=== PATIENT | male | born 1980 | race Caucasian/White ===

== ENCOUNTER 2019-10-01 12:55 | Inpatient (IN) ==
[2019-10-01] MEDS ORDERED: ROCURONIUM BROMIDE 10 MG/ML 5 ML VIAL IV ONE ×2 (12:56→13:45)
[2019-10-01] MEDS ORDERED: ETOMIDATE 2 MG/ML 20 ML VIAL IV ONE (12:56)
[2019-10-01] MEDS ORDERED: RAPID SEQUENCE INDUCTION BAG ONE (12:59)
[2019-10-01] MEDS ORDERED: PROPOFOL IV EMULSION 10 MG/ML 100 ML VIAL IV ONE (13:11)
[2019-10-01] MEDS ORDERED: SODIUM CHLORIDE 0.9% 1000ML 1,000 ML IV SCH (13:15)
[2019-10-01] MEDS ORDERED: STAT IV Infusion **Titration per Protocol STA (13:18)
[2019-10-01] MEDS: propofoL 1,000 MG/100 ML VIAL IV SCH ×3 (13:21→21:40)
[2019-10-01 13:33] LABS: Basophils # (auto) 0.04 K/uL (0-0.2); Basophils % (auto) 0.7 %; Eosinophils # (auto) 0.32 K/uL (0-0.5); Eosinophils % (auto) 5.9 %; Hematocrit (blood only) 42.3 % (42-52); Hemoglobin 14.5 g/dL (14.0-18.0); Immature Granulocytes # (auto) 0.01 K/uL (0.00-0.02); Immature Granulocytes % (auto) 0.2 %; Lymphocytes # (auto) 2.38 K/uL (1.2-3.4); Lymphocytes % (auto) 43.7 %; Mean Corpuscular Hgb Conc 34.3 g/dL (32-36); Mean Corpuscular Volume 90.4 fL (80-100); Mean Platelet Volume 8.9 fL (7.4-10.4); Monocytes # (auto) 0.46 K/uL (0.11-0.59); Monocytes % (auto) 8.4 %; Neutrophils # (auto) 2.24 K/uL (1.4-6.5); Neutrophils % (auto) 41.1 %; Platelet Count 225 K/uL (130-400); RDW Coefficient of Variation 13.1 % (11.5-14.5); RDW Standard Deviation 42.4 fL (36.4-46.3); Red Blood Count 4.68 M/uL (4.7-6.1); White Blood Count 5.45 K/uL (4.8-10.8)
--- NOTE | 2019-10-01 13:42 | XRay Report ---
XR chest 1V portable CLINICAL HISTORY: od COMPARISON STUDY: No previous studies for comparison. FINDINGS: Tip of the endotracheal tube is 4.5 cm above the ravi. Hazy right lower lung opacity is n oted. There is no pneumothorax. There may be minimal left basilar opacity. There is no evidence for p ulmonary edema. Cardiac size is normal. A possible calcified density projects over the left supraclav icular region. IMPRESSION: 1. Satisfactory positioning of the endotracheal tube. 2. Bibasilar opacities, greater on the right. This may reflect atelectasis, infectious process or seq uela of aspiration. ACT 112: Negative or not required by law. Electronically signed by: Zane Ray M.D. 10/01/2019 1:40 PM
--- NOTE | 2019-10-01 13:43 | Emergency Department Note ---
Impression & Plan Drug overdose, Respiratory failure, Acute respiratory acidosis, Drug abuse ED Provider Note NAME: BROOKE SANTANA AGE: 38 SEX: M : 1980 ARRIVES VIA: Ambulance INFORMANT: Prehospital personnel ED PROVIDER(S): Michael Lin DO CHIEF COMPLAINT: Overdose HPI: The patient is a 38-year-old male who presented to the emergency department for an evaluation after a suspected overdose. The patient was [place] and was obtunded. He was not breathing and was felt to be suffering from an overdose. Some of the history was obtained from his significant other who is also at the court house but according to the drainage engineer the patient's significant other was intoxicated. The patient did receive 4 mg of Narcan. For a brief period he was lucid and denied taking any medications that were not prescribed to him but does take methadone. The patient became very combative and confused. I received a prehospital notification about this patient for medic command. The patient was given IM Versed followed by IM ketamine. The patient arrived at the emergency department with copious secretions. He had one episode of emesis prior to arrival. For this reason the decision was made upon arrival to manage the patient's airway aggressively. ROS: See above HPI for pertinent positives & negatives. HPI and ROS were obtained from the prehospital personnel. The patient was unable to participate in review of systems as he was obtunded at arrival in the emergency department. PAST MEDICAL HISTORY: See Below PAST SURGICAL HISTORY: See Below FAMILY HISTORY: See Below SOCIAL HISTORY: See Below HOME MEDICATIONS: See Below ALLERGIES: See Below VITALS: See Below PHYSICAL EXAMINATION: GENERAL: The patient was awake and very anxious appearing. He did not follow commands. He had very copious secretions noted and was making moaning noises. EYES: The conjunctivae are clear. The pupils are round and reactive. EARS, NOSE, MOUTH AND THROAT: The nose is without any evidence of any deformity. Mucous membranes are moist. NECK: The neck is nontender and supple. RESPIRATORY: Shallow respirations were noted. There were scattered rhonchi noted throughout. CARDIOVASCULAR: Tachycardic rate with regular rhythm was noted. There was no definite murmur. GASTROINTESTINAL: The abdomen is soft. Abdomen is nontender. MUSCULOSKELETAL/EXTREMITIES: There is no evidence of gross deformity full range of motion is noted in the hips and shoulders. SKIN: No pedal edema was noted. There were track olvera noted in the left AC as well as the left external jugular vein. NEUROLOGIC: Patient is awake but does not answer questions or follow commands. I am unable to assess orientation at this time. Patellar tendon reflexes were 2+ bilaterally. Patient was moving all extremities. MEDICAL DECISION MAKING: The patient is a 38-year-old male who presented to the emergency department after having a suspected drug overdose. The patient does have a history of methadone use but was found in a car unresponsive. He did receive Narcan but became very agitated. When the prehospital personnel arrived on scene he required benzodiazepines as well as IM ketamine in order to be formally evaluated. The patient had an episode of emesis prior to arrival. Because of the medications he received as well as the medications he took prior to the ove rdose the patient required airway protection. He was intubated in the usual fashion. He tolerated this quite well. The patient was placed on IV sedation while he was in the emergency department. He was reevaluated multiple times. I discussed the patient's condition with the on-call [facility] hospitalist group as well as the on-call multimedia authoring specialist group. They have agreed to evaluate the patient in the emergency department for further management and disposition. Triage Nursing notes reviewed. Prior medical records reviewed Vital Signs: reviewed and remarkable for hypertension. Differential diagnosis: Infection, hypoglycemia, electrolyte abnormalities, overdose, toxicologic, cardiac sources, intracerebral event, neurologic, trauma, as well as other pathologies. ER treatment provided: See below Diagnostics interpreted by me: ECG: EKG was obtained in the emergency department. My interpretation is sinus tachycardia at 101 bpm. There is no ectopy. There was no acute ST segment abnormalities noted. This was compared to a tracing from August 08, 2018. No significant changes were noted. Cardiac Monitoring: An order was placed for continuous cardiac monitoring. The monitor shows a rate of 96 with sinus rhythm. Laboratory studies: As stated above and show below. Imaging studies: See below Consultation(s): 1505: I discussed this case with Dr. Armendariz who is on-call for the [facility] hospitalist group. She is agreed to evaluate the patient in the emergency department for further management and disposition. 1510: I discussed this case with Dr. Nolen with the multimedia authoring specialist group. They have agreed to evaluate the patient in the emergency department for further management disposition. ED COURSE: Procedures: Endotracheal Intubation Indication airway protection after overdose and vomiting. The patient was on 100% oxygen via NRB prior to the procedure. Suction, airway equipment, RSI drugs, respiratory equipment, and appropriate personnel were prepared prior to the initiation of the procedure. A time out was taken. Induction was performed with etomidate and rocuronium. After observing the clinical benefit of the medications, the airway was easily visualized utilizing a glide scope. A 8.0 size ETT tube was placed atraumatically to 24 cm using standard technique. The cuff inflated without signs of malfunction. There were bilateral breath sounds, positive colormetric change, no gastric sounds, a good capnography waveform, and post procedure pulse oximetry was 99%. Post intubation sedation and paralysis was administered using propofol. There were no complications. PDMP:reviewed and no issues Critical Care: I have personally spent greater than 55 minutes of critical care time in the direct management of this patient. This includes bedside care, interpretation of diagnostic studies, and testing, discussion with consultants, patient, and family members, and other required patient management activities. This 55 minutes is in excess of all separately billable procedures. Past Med/Surg History Social History Smoking Status: Unknown if ever smoked Allergies Allergies Allergy/AdvReac Type Severity Reaction Status Date / Time Unable to Assess Allergy Unverified 10/01/19 13:04 Home Meds Home Medications Medication Instructions Recorded Confirmed Unobtainable 10/01/19 10/01/19 Results & Data (ED) Vital Signs Vital Signs - 24 hr 10/01/19 12:55 10/01/19 13:00 10/01/19 13:05 Temperature 36.8 C Temperature Source Oral Pulse Rate 108 H 105 H 111 H Pulse Rate from SpO2 Sensor 107 H 116 H Respiratory Rate 11 L Respiratory Effort / Characteristics Moaning Respiratory Pattern Irregular Blood Pressure 162/146 H 167/109 H Blood Pressure Mean 151 118 Blood Pressure Position Lying Pulse Oximetry 94 99 100 Oxygen Delivery Method Non-rebreather Oxygen Flow Rate 15 Fraction of Inspired Oxygen Sepsis Recent Fever Within 48 Hours No Sepsis Action Taken by Nursing No Action Required End-Tidal CO2 10/01/19 13:10 10/01/19 13:12 10/01/19 13:18 Temperature Temperature Source Pulse Rate 104 H 102 H 99 H Pulse Rate from SpO2 Sensor 106 H 102 H 100 H Respiratory Rate Respiratory Effort / Characteristics Respiratory Pattern Blood Pressure 157/109 H 141/96 H Blood Pressure Mean 117 113 Blood Pressure Position Pulse Oximetry 100 99 100 Oxygen Delivery Method Oxygen Flow Rate Fraction of Inspired Oxygen Sepsis Recent Fever Within 48 Hours Sepsis Action Taken by Nursing End-Tidal CO2 39 10/01/19 13:20 10/01/19 13:25 10/01/19 13:30 Temperature Temperature Source Pulse Rate 101 H 99 H 96 H Pulse Rate from SpO2 Sensor 101 H 99 H 97 H Respiratory Rate 18 Respiratory Effort / Characteristics Respiratory Pattern Blood Pressure 142/104 H 150/109 H 162/116 H Blood Pressure Mean 112 118 134 Blood Pressure Position Pulse Oximetry 100 100 100 Oxygen Delivery Method Oxygen Flow Rate Fraction of Inspired Oxygen 70 Sepsis Recent Fever Within 48 Hours Sepsis Action Taken by Nursing End-Tidal CO2 39 40 41 10/01/19 13:35 10/01/19 13:40 10/01/19 13:45 Temperature Temperature Source Pulse Rate 97 H 99 H 100 H Pulse Rate from SpO2 Sensor 97 H 99 H 100 H Respiratory Rate Respiratory Effort / Characteristics Respiratory Pattern Blood Pressure 159/115 H 165/124 H 168/115 H Blood Pressure Mean 126 131 129 Blood Pressure Position Pulse Oximetry 100 100 100 Oxygen Delivery Method Oxygen Flow Rate Fraction of Inspired Oxygen Sepsis Recent Fever Within 48 Hours Sepsis Action Taken by Nursing End-Tidal CO2 39 41 44 10/01/19 13:48 10/01/19 13:50 10/01/19 13:55 Temperature Temperature Source Pulse Rate 103 H 105 H Pulse Rate from SpO2 Sensor 104 H 104 H Respiratory Rate Respiratory Effort / Characteristics Respiratory Pattern Blood Pressure 167/119 H 173/119 H Blood Pressure Mean 127 135 Blood Pressure Position Pulse Oximetry 100 100 100 Oxygen Delivery Method Oxygen Flow Rate Fraction of Inspired Oxygen Sepsis Recent Fever Within 48 Hours Sepsis Action Taken by Nursing End-Tidal CO2 44 44 10/01/19 14:00 10/01/19 14:21 10/01/19 14:26 Temperature Temperature Source Pulse Rate 99 H 105 H Pulse Rate from SpO2 Sensor 91 H 97 H Respiratory Rate Respiratory Effort / Characteristics Respiratory Pattern Blood Pressure 177/131 H 177/118 H 246/227 H Blood Pressure Mean 148 134 239 Blood Pressure Position Pulse Oximetry 97 100 Oxygen Delivery Method Oxygen Flow Rate Fraction of Inspired Oxygen Sepsis Recent Fever Within 48 Hours Sepsis Action Taken by Nursing End-Tidal CO2 43 48 10/01/19 14:30 10/01/19 14:31 10/01/19 14:35 Temperature Temperature Source Pulse Rate 99 H 95 H 95 H Pulse Rate from SpO2 Sensor 100 H 95 H 96 H Respiratory Rate Respiratory Effort / Characteristics Respiratory Pattern Blood Pressure 175/127 H 157/115 H Blood Pressure Mean 132 122 Blood Pressure Position Pulse Oximetry 99 100 95 Oxygen Delivery Method Oxygen Flow Rate Fraction of Inspired Oxygen Sepsis Recent Fever Within 48 Hours Sepsis Action Taken by Nursing End-Tidal CO2 45 10/01/19 14:40 10/01/19 14:42 10/01/19 14:46 Temperature Temperature Source Pulse Rate 94 H 91 H 94 H Pulse Rate from SpO2 Sensor Respiratory Rate Respiratory Effort / Characteristics Respiratory Pattern Blood Pressure 155/118 H 154/120 H Blood Pressure Mean 135 132 Blood Pressure Position Pulse Oximetry Oxygen Delivery Method Oxygen Flow Rate Fraction of Inspired Oxygen Sepsis Recent Fever Within 48 Hours Sepsis Action Taken by Nursing End-Tidal CO2 48 31 10/01/19 14:50 10/01/19 14:51 10/01/19 14:56 Temperature Temperature Source Pulse Rate 95 H 94 H 94 H Pulse Rate from SpO2 Sensor Respiratory Rate Respiratory Effort / Characteristics Respiratory Pattern Blood Pressure 149/116 H 160/106 H Blood Pressure Mean 125 132 Blood Pressure Position Pulse Oximetry Oxygen Delivery Method Oxygen Flow Rate Fraction of Inspired Oxygen Sepsis Recent Fever Within 48 Hours Sepsis Action Taken by Nursing End-Tidal CO2 101 10/01/19 15:00 10/01/19 15:01 10/01/19 15:06 Temperature Temperature Source Pulse Rate 91 H 88 85 Pulse Rate from SpO2 Sensor 90 88 84 Respiratory Rate Respiratory Effort / Characteristics Respiratory Pattern Blood Pressure 143/107 H 145/94 H Blood Pressure Mean 121 98 Blood Pressure Position Pulse Oximetry 99 100 100 Oxygen Delivery Method Oxygen Flow Rate Fraction of Inspired Oxygen Sepsis Recent Fever Within 48 Hours Sepsis Action Taken by Nursing End-Tidal CO2 39 39 36 10/01/19 15:07 10/01/19 15:10 Temperature Temperature Source Pulse Rate 80 76 Pulse Rate from SpO2 Sensor 81 79 Respiratory Rate Respiratory Effort / Characteristics Respiratory Pattern Blood Pressure 134/85 Blood Pressure Mean 94 Blood Pressure Position Pulse Oximetry 100 99 Oxygen Delivery Method Oxygen Flow Rate Fraction of Inspired Oxygen Sepsis Recent Fever Within 48 Hours Sepsis Action Taken by Nursing End-Tidal CO2 38 38 Home Medications Current Medication List: was personally reviewed by in Laboratory Data Result diagrams: 10/01/19 13:12 10/01/19 13:12 Lab Results 10/01/19 10/01/19 10/01/19 Range/Units 13:12 13:12 13:12 WBC 5.45 (4.8-10.8) K/uL RBC 4.68 L (4.7-6.1) M/uL Hgb 14.5 (14.0-18.0) g/dL Hct 42.3 (42-52) % MCV 90.4 (80-100) fL MCH 31.0 (25-34) pg MCHC 34.3 (32-36) g/dL RDW Std Deviation 42.4 (36.4-46.3) fL RDW Coeff of Jose L 13.1 (11.5-14.5) % Plt Count 225 (130-400) K/uL MPV 8.9 (7.4-10.4) fL Immature Gran % (Auto) 0.2 % Neut % (Auto) 41.1 % Lymph % (Auto) 43.7 % [place] % (Auto) 8.4 % Eos % (Auto) 5.9 % Baso % (Auto) 0.7 % Immature Gran # (Auto) 0.01 (0.00-0.02) K/uL Neut # (Auto) 2.24 (1.4-6.5) K/uL Lymph # (Auto) 2.38 (1.2-3.4) K/uL [place] # (Auto) 0.46 (0.11-0.59) K/uL Eos # (Auto) 0.32 (0-0.5) K/uL Baso # (Auto) 0.04 (0-0.2) K/uL PT 10.5 (9.0-12.0) Seconds INR 1.0 (0.9-1.1) APTT 29.1 (21.0-31.0) Seconds PTT Ratio 1.0 Sodium 139 (136-145) mmol/L Potassium 3.9 (3.5-5.1) mmol/L Chloride 104 (98-107) mmol/L Carbon Dioxide 29 (21-32) mmol/L Anion Gap 6.0 (3-11) BUN 6 L (7-18) mg/dl Creatinine 0.75 (0.6-1.4) mg/dl Est Cr Clr Drug Dosing 158.0 ml/min Est GFR ( Amer) 133.9 Est GFR (Non-Af Amer) 115.6 BUN/Creatinine Ratio 7.9 L (10-20) Glucose 76 (70-99) mg/dl Lactate (0.4-2.0) mmol/L Calcium 8.9 (8.5-10.1) mg/dl Magnesium 2.1 (1.8-2.4) mg/dl Total Bilirubin 0.6 (0.2-1) mg/dl AST 33 (15-37) U/L ALT 44 (12-78) U/L Alkaline Phosphatase 117 (45-117) U/L Total Creatine Kinase 165 (39-308) U/L Troponin I < 0.015 (0-0.045) ng/ml Total Protein 7.7 (6.4-8.2) gm/dl Albumin 3.7 (3.4-5.0) gm/dl Globulin 4.0 (2.5-4.0) gm/dl Albumin/Globulin Ratio 0.9 (0.9-2) Lipase 141 (73-393) U/L Urine Color Urine Appearance (Clear) Urine pH (4.5-7.5) Ur Specific Wharton (1.000-1.030) Urine Protein (Negative) Urine Glucose (UA) (Negative) Urine Ketones (Negative) Urine Blood (Negative) Urine Nitrite (Negative) Urine Bilirubin (Negative) Urine Urobilinogen (Negative) Ur Leukocyte Esterase (Negative) Urine WBC (Auto) (0-5) /hpf Urine RBC (Auto) (0-4) /hpf U Hyaline Cast (Auto) (0-5) /lpf U Epithel Cells (Auto) (0-5) /lpf Urine Bacteria (Auto) (Negative) Salicylates (2.8-20) mg/dl Urine Opiates Screen (Neg) Ur Methadone, Qual (Neg) Acetaminophen (10-30) ug/ml Urine Barbiturates (Neg) Ur Phencyclidine (PCP) (Neg) U Amphetamin/Meth Scrn (Neg) MDMA (Ecstasy) Screen (Neg) U Benzodiazepines Scrn (Neg) Ur Cocaine Metabolite (Neg) U Marijuana (THC) Screen (Neg) Ethyl Alcohol mg/dL (0-3) mg/dl 10/01/19 10/01/19 10/01/19 Range/Units 13:12 13:12 13:25 WBC (4.8-10.8) K/uL RBC (4.7-6.1) M/uL Hgb (14.0-18.0) g/dL Hct (42-52) % MCV (80-100) fL MCH (25-34) pg MCHC (32-36) g/dL RDW Std Deviation (36.4-46.3) fL RDW Coeff of Jose L (11.5-14.5) % Plt Count (130-400) K/uL MPV (7.4-10.4) fL Immature Gran % (Auto) % Neut % (Auto) % Lymph % (Auto) % [place] % (Auto) % Eos % (Auto) % Baso % (Auto) % Immature Gran # (Auto) (0.00-0.02) K/uL Neut # (Auto) (1.4-6.5) K/uL Lymph # (Auto) (1.2-3.4) K/uL [place] # (Auto) (0.11-0.59) K/uL Eos # (Auto) (0-0.5) K/uL Baso # (Auto) (0-0.2) K/uL PT (9.0-12.0) Seconds INR (0.9-1.1) APTT (21.0-31.0) Seconds PTT Ratio Sodium (136-145) mmol/L Potassium (3.5-5.1) mmol/L Chloride (98-107) mmol/L Carbon Dioxide (21-32) mmol/L Anion Gap (3-11) BUN (7-18) mg/dl Creatinine (0.6-1.4) mg/dl Est Cr Clr Drug Dosing ml/min Est GFR ( Amer) Est GFR (Non-Af Amer) BUN/Creatinine Ratio (10-20) Glucose (70-99) mg/dl Lactate 0.8 (0.4-2.0) mmol/L Calcium (8.5-10.1) mg/dl Magnesium (1.8-2.4) mg/dl Total Bilirubin (0.2-1) mg/dl AST (15-37) U/L ALT (12-78) U/L Alkaline Phosphatase (45-117) U/L Total Creatine Kinase (39-308) U/L Troponin I (0-0.045) ng/ml Total Protein (6.4-8.2) gm/dl Albumin (3.4-5.0) gm/dl Globulin (2.5-4.0) gm/dl Albumin/Globulin Ratio (0.9-2) Lipase (73-393) U/L Urine Color Urine Appearance (Clear) Urine pH (4.5-7.5) Ur Specific Wharton (1.000-1.030) Urine Protein (Negative) Urine Glucose (UA) (Negative) Urine Ketones (Negative) Urine Blood (Negative) Urine Nitrite (Negative) Urine Bilirubin (Negative) Urine Urobilinogen (Negative) Ur Leukocyte Esterase (Negative) Urine WBC (Auto) (0-5) /hpf Urine RBC (Auto) (0-4) /hpf U Hyaline Cast (Auto) (0-5) /lpf U Epithel Cells (Auto) (0-5) /lpf Urine Bacteria (Auto) (Negative) Salicylates < 1.7 L (2.8-20) mg/dl Urine Opiates Screen Pos H (Neg) Ur Methadone, Qual Pos H (Neg) Acetaminophen < 2 L (10-30) ug/ml Urine Barbiturates Neg (Neg) Ur Phencyclidine (PCP) Neg (Neg) U Amphetamin/Meth Scrn Pos H (Neg) MDMA (Ecstasy) Screen Neg (Neg) U Benzodiazepines Scrn Pos H (Neg) Ur Cocaine Metabolite Neg (Neg) U Marijuana (THC) Screen Neg (Neg) Ethyl Alcohol mg/dL (0-3) mg/dl 10/01/19 10/01/19 Range/Units 13:25 13:42 WBC (4.8-10.8) K/uL RBC (4.7-6.1) M/uL Hgb (14.0-18.0) g/dL Hct (42-52) % MCV (80-100) fL MCH (25-34) pg MCHC (32-36) g/dL RDW Std Deviation (36.4-46.3) fL RDW Coeff of Jose L (11.5-14.5) % Plt Count (130-400) K/uL MPV (7.4-10.4) fL Immature Gran % (Auto) % Neut % (Auto) % Lymph % (Auto) % [place] % (Auto) % Eos % (Auto) % Baso % (Auto) % Immature Gran # (Auto) (0.00-0.02) K/uL Neut # (Auto) (1.4-6.5) K/uL Lymph # (Auto) (1.2-3.4) K/uL [place] # (Auto) (0.11-0.59) K/uL Eos # (Auto) (0-0.5) K/uL Baso # (Auto) (0-0.2) K/uL PT (9.0-12.0) Seconds INR (0.9-1.1) APTT (21.0-31.0) Seconds PTT Ratio Sodium (136-145) mmol/L Potassium (3.5-5.1) mmol/L Chloride (98-107) mmol/L Carbon Dioxide (21-32) mmol/L Anion Gap (3-11) BUN (7-18) mg/dl Creatinine (0.6-1.4) mg/dl Est Cr Clr Drug Dosing ml/min Est GFR ( Amer) Est GFR (Non-Af Amer) BUN/Creatinine Ratio (10-20) Glucose (70-99) mg/dl Lactate (0.4-2.0) mmol/L Calcium (8.5-10.1) mg/dl Magnesium (1.8-2.4) mg/dl Total Bilirubin (0.2-1) mg/dl AST (15-37) U/L ALT (12-78) U/L Alkaline Phosphatase (45-117) U/L Total Creatine Kinase (39-308) U/L Troponin I (0-0.045) ng/ml Total Protein (6.4-8.2) gm/dl Albumin (3.4-5.0) gm/dl Globulin (2.5-4.0) gm/dl Albumin/Globulin Ratio (0.9-2) Lipase (73-393) U/L Urine Color Yellow Urine Appearance Cloudy A (Clear) Urine pH 8.0 H (4.5-7.5) Ur Specific [place]arton 1.020 (1.000-1.030) Urine Protein Negative (Negative) Urine Glucose (UA) Negative (Negative) Urine Ketones Negative (Negative) Urine Blood Negative (Negative) Urine Nitrite Negative (Negative) Urine Bilirubin Negative (Negative) Urine Urobilinogen Negative (Negative) Ur Leukocyte Esterase Negative (Negative) Urine WBC (Auto) 0 (0-5) /hpf Urine RBC (Auto) 0-4 (0-4) /hpf U Hyaline Cast (Auto) 1-5 (0-5) /lpf U Epithel Cells (Auto) 10-20 H (0-5) /lpf Urine Bacteria (Auto) Negative (Negative) Salicylates (2.8-20) mg/dl Urine Opiates Screen (Neg) Ur Methadone, Qual (Neg) Acetaminophen (10-30) ug/ml Urine Barbiturates (Neg) Ur Phencyclidine (PCP) (Neg) U Amphetamin/Meth Scrn (Neg) MDMA (Ecstasy) Screen (Neg) U Benzodiazepines Scrn (Neg) Ur Cocaine Metabolite (Neg) U Marijuana (THC) Screen (Neg) Ethyl Alcohol mg/dL < 3.0 (0-3) mg/dl Administered Medications Propofol (Diprivan) 1,000 mg in 100 mls @ 14.085 mls/hr IV .Q7H6M [facility]; Protocol Stop: 10/04/19 13:29 Last Titration: 10/01/19 15:08 Dose: 35 mcg/kg/min, 19.7 mls/hr Documented by: [id number] Titration: 10/01/19 14:56 Dose: 30 mcg/kg/min, 16.9 mls/hr Documented by: [id number] Titration: 10/01/19 14:49 Dose: 25 mcg/kg/min, 14.1 mls/hr Documented by: [id number] Admin: 10/01/19 13:21 Dose: 20 mcg/kg/min, 11.3 mls/hr Documented by: [id number] Cosigned by: [id number] Propofol (Diprivan Bolus From Bag) 20 mg IV Q5M PRN PRN Reason: Sedation Stop: 10/04/19 13:17 Last Admin: 10/01/19 14:33 Dose: 20 mg Documented by: [id number] Cosigned by: [id number] Discontinued Medications Fentanyl Citrate (Fentanyl Citrate) 200 mcg IV NOW STA Stop: 10/01/19 14:42 Last Admin: 10/01/19 14:43 Dose: 200 mcg Documented by: [id number] Fentanyl Citrate (Fentanyl Citrate) Confirm Administered Dose 200 mcg .ROUTE .STK-MED ONE Stop: 10/01/19 14:42 Last Admin: 10/01/19 14:43 Dose: Not Given Documented by: [id number] Sodium Chloride (Nss 1000ml) 1,000 mls @ 999 mls/hr IV .Q1H1M NINI Stop: 10/01/19 14:15 Last Infusion: 10/01/19 14:43 Dose: 0 mls/hr Documented by: [id number] Admin: 10/01/19 13:18 Dose: 999 mls/hr Documented by: [id number] Midazolam HCl (Versed) 4 mg IV NOW STA Stop: 10/01/19 14:27 Last Admin: 10/01/19 14:31 Dose: 4 mg Documented by: [id number] Propofol (Diprivan) Confirm Administered Dose 1,000 mg IV .STK-MED ONE Stop: 10/01/19 13:12 Last Admin: 10/01/19 13:21 Dose: Not Given Documented by: [id number] Rocuronium [place] (Zemuron) 80 mg IV NOW ONE Stop: 10/01/19 13:46 Last Admin: 10/01/19 13:09 Dose: 80 mg Documented by: [id number] Cosigned by: [id number] Imaging Data Radiologist's Impression: XR chest 1V portable CLINICAL HISTORY: od COMPARISON STUDY: No previous studies for comparison. FINDINGS: Tip of the endotracheal tube is 4.5 cm above the ravi. Hazy right lower lung opacity is noted. There is no pneumothorax. There may be minimal left basilar opacity. There is no evidence for pulmonary edema. Cardiac size is normal. A possible calcified density projects over the left supraclavicular region. IMPRESSION: 1. Satisfactory positioning of the endotracheal tube. 2. Bibasilar opacities, greater on the right. This may reflect atelectasis, infectious process or sequela of aspiration. ACT 112: Negative or not required by law. Electronically signed by: Zane Ray M.D. 10/01/2019 1:40 PM Dictated: 10/01/191338 Transcribed: 10/01/191338 HEAD CT NONCONTRAST CT DOSE: 1842.80 mGy.cm HISTORY: Altered mental status. TECHNIQUE: Multiaxial CT images of the head were performed without the use of intravenous contrast. Automated exposure control was utilized for this study. A dose lowering technique was utilized adhering to the principles of ALARA. Comparison: None. Findings: Small retention cyst within the left maxillary sinus. The mastoid air cells are clear. Fluid in the posterior nasal cavity is likely due to the intubation. The calvarium and skull base are intact. The ventricles and sulci are within normal limits. There is no mass, hematoma, midline shift, or acute infarct. Impression: No acute intracranial abnormality. ACT 112: Negative or not required by law. Electronically signed by: Markel Obregon M.D. 10/01/2019 2:27 PM Dictated: 10/01/19 1419 Transcribed: 10/01/19 141 Blood Pressure Blood Pressure Findings: Elevated blood pressure Discharge Plan Visit Data Chief Complaint: Overdose (Accidental) Stated Complaint: drug over dose ED Provider: Michael Lin Discharge Problem: Drug overdose, Respiratory failure, Acute respiratory acidosis, Drug abuse Patient Disposition: Being Evaluated by Hospitalist Condition: Good Forms Stand Alone Forms: Preact Prescriptions Prescriptions: No Action Unobtainable RF: 0 Referrals Referrals: PCP,NO [Primary Care Provider] - Discharge Problem: Drug overdose Qualifiers: Encounter type: initial encounter Injury intent: undetermined intent Qualified Code(s): T50.904A - Poisoning by unspecified drugs, medicaments and biological substances, undetermined, initial encounter Respiratory failure Qualifiers: Chronicity: acute Respiratory failure complication: hypercapnia Qualified Code(s): J96.02 - Acute respiratory failure with hypercapnia
[2019-10-01 13:50] LABS: Alanine Aminotransferase 44 U/L (12-78); Albumin Level 3.7 gm/dl (3.4-5.0); BUN Creatinine Ratio 7.9 (10-20); Blood Urea Nitrogen 6 mg/dl (7-18); Calcium 8.9 mg/dl (8.5-10.1); Carbon Dioxide 29 mmol/L (21-32); Chloride 104 mmol/L (98-107); Est GFR (African American) 133.9; Est GFR (Non-African American) 115.6; Glucose 76 mg/dl (70-99); Lipase 141 U/L (73-393); Magnesium 2.1 mg/dl (1.8-2.4); Partial Thromboplastin Time 29.1 Seconds (21.0-31.0); Potassium 3.9 mmol/L (3.5-5.1); Prothrombin Time 10.5 Seconds (9.0-12.0); Sodium 139 mmol/L (136-145)
[2019-10-01 13:56] LABS: Albumin Globulin Ratio 0.9 (0.9-2); Alkaline Phosphatase 117 U/L (45-117); Aspartate Aminotransferase 33 U/L (15-37); Bilirubin,Total 0.6 mg/dl (0.2-1); Creatine Kinase 165 U/L (39-308); Total Protein 7.7 gm/dl (6.4-8.2); Troponin I < 0.015 ng/ml (0-0.045)
[2019-10-01 13:57] LABS: Acetaminophen < 2 ug/ml (10-30); Salicylate < 1.7 mg/dl (2.8-20)
[2019-10-01 14:12] LABS: Amphetamines+Metham, Urine Pos (Neg); Barbiturates, Urine Neg (Neg); Benzodiazepine, Urine Pos (Neg); Cocaine, Urine Neg (Neg); MDMA (Ecstacy), Urine Neg (Neg); Methadone, Urine Pos (Neg); Opiate, Urine Pos (Neg); Phencyclidine, Urine Neg (Neg)
[2019-10-01] MEDS ORDERED: MIDAZOLAM HCL 5 MG/ML 1 ML VIAL IV STA (14:26)
--- NOTE | 2019-10-01 14:28 | CT Scan Report ---
HEAD CT NONCONTRAST CT DOSE: 1842.80 mGy.cm HISTORY: Altered mental status. TECHNIQUE: Multiaxial CT images of the head were performed without the use of intravenous contrast. A utomated exposure control was utilized for this study. A dose lowering technique was utilized adheri ng to the principles of ALARA. Comparison: None. Findings: Small retention cyst within the left maxillary sinus. The mastoid air cells are clear. Flui d in the posterior nasal cavity is likely due to the intubation. The calvarium and skull base are int act. The ventricles and sulci are within normal limits. There is no mass, hematoma, midline shift, or acute infarct. Impression: No acute intracranial abnormality. ACT 112: Negative or not required by law. Electronically signed by: Markel Obregon M.D. 10/01/2019 2:27 PM
[2019-10-01 14:30] LABS: Appearance Urine Cloudy (Clear); Bacteria Urine Automated Negative (Negative); Bilirubin Urine Negative (Negative); Blood Urine Negative (Negative); Color Urine Yellow; Glucose Urine UA Negative (Negative); Ketones Urine Negative (Negative); Leukocyte Esterase Urine Negative (Negative); Nitrite Urine Negative (Negative); Protein Urine Negative (Negative); RBC Urine Automated 0-4 /hpf (0-4); Urobilinogen Urine Negative (Negative); WBC Urine Automated 0 /hpf (0-5)
[2019-10-01] MEDS: PROPOFOL BOLUS FROM BAG IV PRN ×3 (14:33→19:27)
[2019-10-01] MEDS ORDERED: fentaNYL citrate 100 MCG/2 ML VIAL IV STA (14:41)
[2019-10-01] MEDS ORDERED: fentaNYL citrate 100 MCG/2 ML VIAL ONE (14:41)
--- NOTE | 2019-10-01 15:24 | History & Physical Report ---
Date of Service October 01, 2019 Assessment & Plan (1) Drug overdose: Pt found passed out in his car Given several medication by EMS: 4mg narcan, 4mg versed, ketamine Utox noted for opiates, methadone, methamphetamines, benzos Utox neg for acetaminophen and EtOH Pt stated rx use of methadone to EMS at one point CBC, PRP, trop, lactic acid, lipase WNL CT head: neg for acute UA neg Currently intubated and sedated for failure to protect airway (2) Respiratory failure: Presumed related to overdose (3) Acute respiratory acidosis: related to above (4) Abnormal chest x-ray: CXR s/p intubation with possible atelectasis vs aspiration Start on zosyn (5) DVT prophylaxis: Heparin for DVT proph History of Present Illness Primary Care Provider: RANJANA PCP 38 y/o M who was brought to the ED after being found passed out in his car. Pt is intubated and sedated at this time. Unable to provide any hx. All hx comes from ED physician. Pt was found passed out in his car. EMS was called. They gave pt 4mg Narcan and he appeared to wake up, however was confused and combative. Pt was then given 4mg Versed, but aggressiveness continued. He was then given ketamine. At this point, pt started with n/v and frothing at the mouth. He was brought to the ED and there was concern that he was not protecting his airway. He was intubated in the ED. He has been sedated on propofol since that time. At some point while pt was confused and combative, he did admit to being prescribed methadone. Per ED physician, pt's was on the scene when EMT arrived, however she appeared to be intoxicated as well. Allergies Allergy/AdvReac Type Severity Reaction Status Date / Time Unable to Assess Allergy Unverified 10/01/19 13:04 Home Medications Home Medications Medication Instructions Recorded Confirmed Type Unobtainable 10/01/19 10/01/19 History Past Med/Surg History Social History Smoking Status: Unknown if ever smoked Review of Systems Review of Systems: Unable to obtain due to pt intubated and sedated Physical Exam Constitutional: WD/WN, vitals as above Eyes: normal visual [place]eg[place] by confrontation and + anicteric sclerae Neck: normal visual inspection and trachea midline Respiratory: normal respiratory effort, lungs clear to auscultation Cardiovascular: Rate/Rhythm: regular rate and regular rhythm Gastrointestinal (Abdomen): Inspection/Auscultation: abdomen not distended Percussion/Palpation: abdomen soft; abdomen nontender Musculoskeletal: Head/Neck/Chest: normocephalic and head atraumatic negative for edema, peripheral pulses intact Skin: no rashes, warm and dry Neurologic: + obtunded; + not awake Psychiatric: Intubated and sedated Results & Data Results & Data ([facility]) Vital Signs (Past 12 Hours) Vital Signs Temp Pulse Resp BP Pulse Ox 10/01/19 15:10 76 134/85 99 10/01/19 15:07 80 100 10/01/19 15:06 85 145/94 H 100 10/01/19 15:01 88 143/107 H 100 10/01/19 15:00 91 H 99 10/01/19 14:56 94 H 160/106 H 10/01/19 14:51 94 H 149/116 H 10/01/19 14:50 95 H 20 14:46 94 H 154/120 H 0520 14:42 91 H 155/118 H 20 14:40 94 H 20 14:35 95 H 157/115 H 95 20 14:31 95 H 175/127 H 100 05/20 14:30 99 H 99 05//20 14:26 105 H 246/227 H 100 05/20/20 14:21 99 H 177/118 H 97 20 14:00 177/131 H 052020 13:55 105 H 173/119 H 100 05/20/20 13:50 103 H 167/119 H 100 05/20/20 13:48 100 05/20/20 13:45 100 H 168/115 H 100 05/20/20 13:40 99 H 165/124 H 100 05/20/20 13:35 97 H 159/115 H 100 05/20/20 13:30 96 H 162/116 H 100 05/20/20 13:25 99 H 150/109 H 100 05/20/20 13:20 101 H 18 142/104 H 100 05/20/20 13:18 99 H 141/96 H 100 05/20/20 13:12 102 H 157/109 H 99 10/01/19 13:10 104 H 100 10/01/19 13:05 111 H 100 10/01/19 13:00 105 H 167/109 H 99 10/01/19 12:55 36.8 C 108 H 11 L 162/146 H 94 Diagnostic Findings CXR s/p intubation with possible atelectasis vs aspiration CT head: neg for acute ECG Indication: tachycardia Code Status & VTE Plan Code Status Entered as full code for now given pt unable to answer VTE Prophylaxis Plan VTE Prophylaxis will be ordered: Yes PG Care Time/CCT Total # of Minutes Spent Total Time Spent with Patient: Total time spent is greater than 50% in coordination of care (as documented) at patient's floor/unit and/or counseling patient: Coding Level of Care Code 90288 Initial Inpt Care Lvl 3 Diagnoses Drug overdose T50.904A Encounter type: initial encounter Injury intent: undetermined intent Respiratory failure J96.02 Chronicity: acute Respiratory failure complication: hypercapnia Acute respiratory acidosis E87.2 Abnormal chest x-ray R93.89 DVT prophylaxis Z29.9 (1) Drug overdose Encounter type: initial encounter Injury intent: undetermined intent Qualified Code(s): T50.904A - Poisoning by unspecified drugs, medicaments and biological substances, undetermined, initial encounter (2) Respiratory failure Chronicity: acute Respiratory failure complication: hypercapnia Qualified Code(s): J96.02 - Acute respiratory failure with hypercapnia
--- NOTE | 2019-10-01 15:58 | Critical Care Consultation ---
Date of Consultation October 01, 2019 Assessment & Plan (1) Respiratory failure: Reason Critically Ill: 38-year-old male with probable opiate substance abuse leading to acute respiratory failure and acute encephalopathy requiring intubation mechanical ventilation PLAN: Neuro: Acute encephalopathy -Likely toxic, continue sedation and allow patient to clear offending medications -Urine drug screen positive for opiates: Methadone, amphetamines, benzodiazepines Resp: Respiratory failure -Possible aspiration -Minimal vent settings currently wean and extubate early -Discontinue Zosyn as there is no evidence of aspiration pneumonitis at this time CV: Telemetry for cardiac monitoring Prolonged QT -Suspect secondary to methadone Fluids/Renal: Maintenance fluids -Currently D5 NS with 20 M EQ's KCl decreased rate to 75 ID: Possible aspiration -Discontinued Zosyn secondary to normal oxygen requirement will closely monitor GI/Nutrition: Hepatitis C antibody preliminary positive -Will obtain additional information when patient is arousable possible gastroenterology referral -Hepatitis C RNA is negative at this time Heme: DVT prophylaxis: Heparin for DVT prophylaxis Endocrine: ICU hyperglycemia protocol Vascular access: Peripheral IVs Code Status: Full Disposition: ICU monitoring Present on Admission?: Yes (2) Acute encephalopathy: (3) DVT prophylaxis: (4) Drug abuse: (5) Acute respiratory acidosis: (6) Drug overdose: (7) Admitted to intensive care unit: (8) Substance abuse: (9) Prolonged Q-T interval on ECG: History of Present Illness Reason for Consultation: Acute encephalopathy, hypoxic respiratory failure Requesting Physician: Riley Attending Physician: Sharon ROWLEY History of Present Illness History is obtained from prior records as patient is intubated and sedated. This is a 38-year-old male history is largely from EMS. It was reported the patient was found in his automobile outside the [facility] while his partner was inside being arraigned. It was reported that his partner was intoxicated and when authorities found the patient in his vehicle he was unresponsive. EMS was contacted and he was administered for 2 mg of Narcan and had an appropriate response, the patient admitted to methadone use however he became obtunded again he was combative in the emergency department possibly aspirated and was subsequently intubated in the emergency department. I have been consulted for evaluation and further management. Allergies Allergy/AdvReac Type Severity Reaction Status Date / Time Unable to Assess Allergy Unverified 10/01/19 13:04 Home Medications Home Medications Medication Instructions Recorded Confirmed Type Unobtainable 10/01/19 10/01/19 History Patient History Social History Communication Ability: Unable Beliefs That Will Affect Care: None Smoking Status: Unknown if ever smoked Hx Substance Use: Yes substance use type: methamphetamine Substance Use Type Other:: test pending Review of Systems Review of Systems: Unobtainable due to endotracheal tube and Unobtainable due to reduced consciousness Physical Exam Physical Exam: General: Well-nourished middle-aged male with multiple tattoos covering his bilateral upper extremities and lower extremities I have reviewed the recorded vital signs Neurological: RASS score: -2, Moves all 4 extremities to painful stimuli Psychological: Glascow Coma Scale: Eyes: 2, Verbal 1T, Motor 5, Total 8T Eyes: Pupils are equal, round and reactive to light, anicteric sclera. Symmetrical lids. HENT: Obscured by endotracheal tube, moist Mucous Membranes. Neck: Supple. Symmetric. trachea midline. No thyromegaly. Cardiovascular: Normal peripheral perfusion. Distal pulses and capillary refill intact. No JVD. Respiratory: Respirations are non-labored, no accessory muscle use. Breath sounds are equal. Gastrointestinal: Soft. Non-distended. Lymphatic: No cervical lymphadenopathy. Musculoskeletal: No deformity. No clubbing nor cyanosis, multiple tattoos Results & Data Results & Data ([facility]) Vital Signs (Past 12 Hours) Vital Signs Temp Pulse Resp BP Pulse Ox 10/01/19 15:50 84 100 10/01/19 15:45 76 139/93 99 10/01/19 15:40 78 99 10/01/19 15:30 78 134/84 99 10/01/19 15:25 79 126/89 98 10/01/19 15:20 74 100 10/01/19 15:16 81 150/81 H 99 10/01/19 15:10 76 134/85 99 10/01/19 15:07 80 100 10/01/19 15:06 85 145/94 H 100 10/01/19 15:01 88 143/107 H 100 10/01/19 15:00 91 H 99 10/01/19 14:56 94 H 160/106 H 10/01/19 14:51 94 H 149/116 H 10/01/19 14:50 95 H 10/01/19 14:46 94 H 154/120 H 10/01/19 14:42 91 H 155/118 H 10/01/19 14:40 94 H 10/01/19 14:35 95 H 157/115 H 95 10/01/19 14:31 95 H 175/127 H 100 10/01/19 14:30 99 H 99 10/01/19 14:26 105 H 246/227 H 100 10/01/19 14:21 99 H 177/118 H 97 10/01/19 14:00 177/131 H 10/01/19 13:55 105 H 173/119 H 10/01/19 13:50 103 H 167/119 H 10/01/19 13:48 100 10/01/19 13:45 100 H 168/115 H 10/01/19 13:40 99 H 165/124 H 10/01/19 13:35 97 H 159/115 H 10/01/19 13:30 96 H 162/116 H 100 10/01/19 13:25 99 H 150/109 H 100 10/01/19 13:20 101 H 18 142/104 H 100 10/01/19 13:18 99 H 141/96 H 10/01/19 13:12 102 H 157/109 H 10/01/19 13:10 104 H 100 10/01/19 13:05 111 H 10/01/19 13:00 105 H 167/109 H 10/01/19 12:55 36.8 C 108 H 11 L 162/146 H 94 Laboratory Results 10/01/19 10/01/19 10/01/19 Range/Units 15:58 13:42 13:25 WBC (4.8-10.8) K/uL RBC (4.7-6.1) M/uL Hgb (14.0-18.0) g/dL Hct (42-52) % MCV (80-100) fL MCH (25-34) pg MCHC (32-36) g/dL RDW Std Deviation (36.4-46.3) fL RDW Coeff of Jose L (11.5-14.5) % Plt Count (130-400) K/uL MPV (7.4-10.4) fL Immature Gran % (Auto) % Neut % (Auto) % Lymph % (Auto) % Whitfield % (Auto) % Eos % (Auto) % Baso % (Auto) % Immature Gran # (Auto) (0.00-0.02) K/uL Neut # (Auto) (1.4-6.5) K/uL Lymph # (Auto) (1.2-3.4) K/uL Whitfield # (Auto) (0.11-0.59) K/uL Eos # (Auto) (0-0.5) K/uL Baso # (Auto) (0-0.2) K/uL PT (9.0-12.0) Seconds INR (0.9-1.1) APTT (21.0-31.0) Seconds PTT Ratio ABG pH Pending ABG pCO2 Pending ABG pO2 Pending ABG HCO3 Pending ABG O2 Saturation Pending ABG Base Excess Pending Bay Test Pending Oxygen Given Pending Sodium (136-145) mmol/L Potassium (3.5-5.1) mmol/L Chloride (98-107) mmol/L Carbon Dioxide (21-32) mmol/L Anion Gap (3-11) BUN (7-18) mg/dl Creatinine (0.6-1.4) mg/dl Est Cr Clr Drug Dosing ml/min Est GFR ( Amer) Est GFR (Non-Af Amer) BUN/Creatinine Ratio (10-20) Glucose (70-99) mg/dl Osmolality (280-300) mOsm/kg Lactate (0.4-2.0) mmol/L Calcium (8.5-10.1) mg/dl Magnesium (1.8-2.4) mg/dl Total Bilirubin (0.2-1) mg/dl AST (15-37) U/L ALT (12-78) U/L Alkaline Phosphatase (45-117) U/L Total Creatine Kinase (39-308) U/L Troponin I (0-0.045) ng/ml Total Protein (6.4-8.2) gm/dl Albumin (3.4-5.0) gm/dl Globulin (2.5-4.0) gm/dl Albumin/Globulin Ratio (0.9-2) Lipase (73-393) U/L Urine Color Urine Appearance (Clear) Urine pH (4.5-7.5) Ur Specific [place] (1.000-1.030) Urine Protein (Negative) Urine Glucose (UA) (Negative) Urine Ketones (Negative) Urine Blood (Negative) Urine Nitrite (Negative) Urine Bilirubin (Negative) Urine Urobilinogen (Negative) Ur Leukocyte Esterase (Negative) Urine WBC (Auto) (0-5) /hpf Urine RBC (Auto) (0-4) /hpf U Hyaline Cast (Auto) (0-5) /lpf U Epithel Cells (Auto) (0-5) /lpf Urine Bacteria (Auto) (Negative) Salicylates (2.8-20) mg/dl Urine Opiates Screen (Neg) U Codeine Confrm GC/MS Pending Ur Morphine (GC/MS) Pending Ur Hydrocodone (GC/MS) Pending Ur Norhydrocodone Pending Ur Noroxycodone Pending Urine Oxycodone (GC/MS) Pending U Oxymorphone GC/MS Pending Ur Methadone, Qual (Neg) U Methadone Metabolites Pending Ur Methadone Confirm Pending Ur Hydromorphone (GC/MS) Pending Acetaminophen (10-30) ug/ml Urine Barbiturates (Neg) Ur Phencyclidine (PCP) (Neg) U Amphetamines Confirm Pending U Amphetamin/Meth Scrn (Neg) U Methamphetamin Confrm Pending MDMA (Ecstasy) Screen (Neg) U OH-Alprazolam Confrm Pending U Benzodiazepines Scrn (Neg) 7-Amino Clonazepam Pending Ur Nordiazepam Confirm Pending U OH-ethylflurazepam Pending U Lorazepam Cnf GC/MS Pending U Oxazepam Confm GC/MS Pending Ur Temazepam Confirm Pending U OH-Triazolam Confirm Pending U OH-Midazolam Confirm Pending Ur Cocaine Metabolite (Neg) U Marijuana (THC) Screen (Neg) Drug Screen Comment Pending Ethyl Alcohol mg/dL < 3.0 (0-3) mg/dl 10/01/19 10/01/19 10/01/19 Range/Units 13:25 13:25 13:12 WBC (4.8-10.8) K/uL RBC (4.7-6.1) M/uL Hgb (14.0-18.0) g/dL Hct (42-52) % MCV (80-100) fL MCH (25-34) pg MCHC (32-36) g/dL RDW Std Deviation (36.4-46.3) fL RDW Coeff of Jose L (11.5-14.5) % Plt Count (130-400) K/uL MPV (7.4-10.4) fL Immature Gran % (Auto) % Neut % (Auto) % Lymph % (Auto) % Whitfield % (Auto) % Eos % (Auto) % Baso % (Auto) % Immature Gran # (Auto) (0.00-0.02) K/uL Neut # (Auto) (1.4-6.5) K/uL Lymph # (Auto) (1.2-3.4) K/uL Whitfield # (Auto) (0.11-0.59) K/uL Eos # (Auto) (0-0.5) K/uL Baso # (Auto) (0-0.2) K/uL PT (9.0-12.0) Seconds INR (0.9-1.1) APTT (21.0-31.0) Seconds PTT Ratio ABG pH ABG pCO2 ABG pO2 ABG HCO3 ABG O2 Saturation ABG Base Excess Bay Test Oxygen Given Sodium (136-145) mmol/L Potassium (3.5-5.1) mmol/L Chloride (98-107) mmol/L Carbon Dioxide (21-32) mmol/L Anion Gap (3-11) BUN (7-18) mg/dl Creatinine (0.6-1.4) mg/dl Est Cr Clr Drug Dosing ml/min Est GFR ( Amer) Est GFR (Non-Af Amer) BUN/Creatinine Ratio (10-20) Glucose (70-99) mg/dl Osmolality 287 (280-300) mOsm/kg Lactate (0.4-2.0) mmol/L Calcium (8.5-10.1) mg/dl Magnesium (1.8-2.4) mg/dl Total Bilirubin (0.2-1) mg/dl AST (15-37) U/L ALT (12-78) U/L Alkaline Phosphatase (45-117) U/L Total Creatine Kinase (39-308) U/L Troponin I (0-0.045) ng/ml Total Protein (6.4-8.2) gm/dl Albumin (3.4-5.0) gm/dl Globulin (2.5-4.0) gm/dl Albumin/Globulin Ratio (0.9-2) Lipase (73-393) U/L Urine Color Yellow Urine Appearance Cloudy A (Clear) Urine pH 8.0 H (4.5-7.5) Ur Specific Belding 1.020 (1.000-1.030) Urine Protein Negative (Negative) Urine Glucose (UA) Negative (Negative) Urine Ketones Negative (Negative) Urine Blood Negative (Negative) Urine Nitrite Negative (Negative) Urine Bilirubin Negative (Negative) Urine Urobilinogen Negative (Negative) Ur Leukocyte Esterase Negative (Negative) Urine WBC (Auto) 0 (0-5) /hpf Urine RBC (Auto) 0-4 (0-4) /hpf U Hyaline Cast (Auto) 1-5 (0-5) /lpf U Epithel Cells (Auto) 10-20 H (0-5) /lpf Urine Bacteria (Auto) Negative (Negative) Salicylates (2.8-20) mg/dl Urine Opiates Screen Pos H (Neg) U Codeine Confrm GC/MS Ur Morphine (GC/MS) Ur Hydrocodone (GC/MS) Ur Norhydrocodone Ur Noroxycodone Urine Oxycodone (GC/MS) U Oxymorphone GC/MS Ur Methadone, Qual Pos H (Neg) U Methadone Metabolites Ur Methadone Confirm Ur Hydromorphone (GC/MS) Acetaminophen (10-30) ug/ml Urine Barbiturates Neg (Neg) Ur Phencyclidine (PCP) Neg (Neg) U Amphetamines Confirm U Amphetamin/Meth Scrn Pos H (Neg) U Methamphetamin Confrm MDMA (Ecstasy) Screen Neg (Neg) U OH-Alprazolam Confrm U Benzodiazepines Scrn Pos H (Neg) 7-Amino Clonazepam Ur Nordiazepam Confirm U OH-ethylflurazepam U Lorazepam Cnf GC/MS U Oxazepam Confm GC/MS Ur Temazepam Confirm U OH-Triazolam Confirm U OH-Midazolam Confirm Ur Cocaine Metabolite Neg (Neg) U Marijuana (THC) Screen Neg (Neg) Drug Screen Comment Ethyl Alcohol mg/dL (0-3) mg/dl 0510/01/19 10/01/19 Range/Units 13:12 13:12 13:12 WBC (4.8-10.8) K/uL RBC (4.7-6.1) M/uL Hgb (14.0-18.0) g/dL Hct (42-52) % MCV (80-100) fL MCH (25-34) pg MCHC (32-36) g/dL RDW Std Deviation (36.4-46.3) fL RDW Coeff of Jose L (11.5-14.5) % Plt Count (130-400) K/uL MPV (7.4-10.4) fL Immature Gran % (Auto) % Neut % (Auto) % Lymph % (Auto) % Whitfield % (Auto) % Eos % (Auto) % Baso % (Auto) % Immature Gran # (Auto) (0.00-0.02) K/uL Neut # (Auto) (1.4-6.5) K/uL Lymph # (Auto) (1.2-3.4) K/uL Whitfield # (Auto) (0.11-0.59) K/uL Eos # (Auto) (0-0.5) K/uL Baso # (Auto) (0-0.2) K/uL PT (9.0-12.0) Seconds INR (0.9-1.1) APTT (21.0-31.0) Seconds PTT Ratio ABG pH ABG pCO2 ABG pO2 ABG HCO3 ABG O2 Saturation ABG Base Excess Bay Test Oxygen Given Sodium 139 (136-145) mmol/L Potassium 3.9 (3.5-5.1) mmol/L Chloride 104 (98-107) mmol/L Carbon Dioxide 29 (21-32) mmol/L Anion Gap 6.0 (3-11) BUN 6 L (7-18) mg/dl Creatinine 0.75 (0.6-1.4) mg/dl Est Cr Clr Drug Dosing 158.0 ml/min Est GFR ( Amer) 133.9 Est GFR (Non-Af Amer) 115.6 BUN/Creatinine Ratio 7.9 L (10-20) Glucose 76 (70-99) mg/dl Osmolality (280-300) mOsm/kg Lactate 0.8 (0.4-2.0) mmol/L Calcium 8.9 (8.5-10.1) mg/dl Magnesium 2.1 (1.8-2.4) mg/dl Total Bilirubin 0.6 (0.2-1) mg/dl AST 33 (15-37) U/L ALT 44 (12-78) U/L Alkaline Phosphatase 117 (45-117) U/L Total Creatine Kinase 165 (39-308) U/L Troponin I < 0.015 (0-0.045) ng/ml Total Protein 7.7 (6.4-8.2) gm/dl Albumin 3.7 (3.4-5.0) gm/dl Globulin 4.0 (2.5-4.0) gm/dl Albumin/Globulin Ratio 0.9 (0.9-2) Lipase 141 (73-393) U/L Urine Color Urine Appearance (Clear) Urine pH (4.5-7.5) Ur Specific Belding (1.000-1.030) Urine Protein (Negative) Urine Glucose (UA) (Negative) Urine Ketones (Negative) Urine Blood (Negative) Urine Nitrite (Negative) Urine Bilirubin (Negative) Urine Urobilinogen (Negative) Ur Leukocyte Esterase (Negative) Urine WBC (Auto) (0-5) /hpf Urine RBC (Auto) (0-4) /hpf U Hyaline Cast (Auto) (0-5) /lpf U Epithel Cells (Auto) (0-5) /lpf Urine Bacteria (Auto) (Negative) Salicylates < 1.7 L (2.8-20) mg/dl Urine Opiates Screen (Neg) U Codeine Confrm GC/MS Ur Morphine (GC/MS) Ur Hydrocodone (GC/MS) Ur Norhydrocodone Ur Noroxycodone Urine Oxycodone (GC/MS) U Oxymorphone GC/MS Ur Methadone, Qual (Neg) U Methadone Metabolites Ur Methadone Confirm Ur Hydromorphone (GC/MS) Acetaminophen < 2 L (10-30) ug/ml Urine Barbiturates (Neg) Ur Phencyclidine (PCP) (Neg) U Amphetamines Confirm U Amphetamin/Meth Scrn (Neg) U Methamphetamin Confrm MDMA (Ecstasy) Screen (Neg) U OH-Alprazolam Confrm U Benzodiazepines Scrn (Neg) 7-Amino Clonazepam Ur Nordiazepam Confirm U OH-ethylflurazepam U Lorazepam Cnf GC/MS U Oxazepam Confm GC/MS Ur Temazepam Confirm U OH-Triazolam Confirm U OH-Midazolam Confirm Ur Cocaine Metabolite (Neg) U Marijuana (THC) Screen (Neg) Drug Screen Comment Ethyl Alcohol mg/dL (0-3) mg/dl 10/01/19 10/01/19 Range/Units 13:12 13:12 WBC 5.45 (4.8-10.8) K/uL RBC 4.68 L (4.7-6.1) M/uL Hgb 14.5 (14.0-18.0) g/dL Hct 42.3 (42-52) % MCV 90.4 (80-100) fL MCH 31.0 (25-34) pg MCHC 34.3 (32-36) g/dL RDW Std Deviation 42.4 (36.4-46.3) fL RDW Coeff of Jose L 13.1 (11.5-14.5) % Plt Count 225 (130-400) K/uL MPV 8.9 (7.4-10.4) fL Immature Gran % (Auto) 0.2 % Neut % (Auto) 41.1 % Lymph % (Auto) 43.7 % Whitfield % (Auto) 8.4 % Eos % (Auto) 5.9 % Baso % (Auto) 0.7 % Immature Gran # (Auto) 0.01 (0.00-0.02) K/uL Neut # (Auto) 2.24 (1.4-6.5) K/uL Lymph # (Auto) 2.38 (1.2-3.4) K/uL Whitfield # (Auto) 0.46 (0.11-0.59) K/uL Eos # (Auto) 0.32 (0-0.5) K/uL Baso # (Auto) 0.04 (0-0.2) K/uL PT 10.5 (9.0-12.0) Seconds INR 1.0 (0.9-1.1) APTT 29.1 (21.0-31.0) Seconds PTT Ratio 1.0 ABG pH ABG pCO2 ABG pO2 ABG HCO3 ABG O2 Saturation ABG Base Excess Bay Test Oxygen Given Sodium (136-145) mmol/L Potassium (3.5-5.1) mmol/L Chloride (98-107) mmol/L Carbon Dioxide (21-32) mmol/L Anion Gap (3-11) BUN (7-18) mg/dl Creatinine (0.6-1.4) mg/dl Est Cr Clr Drug Dosing ml/min Est GFR ( Amer) Est GFR (Non-Af Amer) BUN/Creatinine Ratio (10-20) Glucose (70-99) mg/dl Osmolality (280-300) mOsm/kg Lactate (0.4-2.0) mmol/L Calcium (8.5-10.1) mg/dl Magnesium (1.8-2.4) mg/dl Total Bilirubin (0.2-1) mg/dl AST (15-37) U/L ALT (12-78) U/L Alkaline Phosphatase (45-117) U/L Total Creatine Kinase (39-308) U/L Troponin I (0-0.045) ng/ml Total Protein (6.4-8.2) gm/dl Albumin (3.4-5.0) gm/dl Globulin (2.5-4.0) gm/dl Albumin/Globulin Ratio (0.9-2) Lipase (73-393) U/L Urine Color Urine Appearance (Clear) Urine pH (4.5-7.5) Ur Specific Bel[place] (1.000-1.030) Urine Protein (Negative) Urine Glucose (UA) (Negative) Urine Ketones (Negative) Urine Blood (Negative) Urine Nitrite (Negative) Urine Bilirubin (Negative) Urine Urobilinogen (Negative) Ur Leukocyte Esterase (Negative) Urine WBC (Auto) (0-5) /hpf Urine RBC (Auto) (0-4) /hpf U Hyaline Cast (Auto) (0-5) /lpf U Epithel Cells (Auto) (0-5) /lpf Urine Bacteria (Auto) (Negative) Salicylates (2.8-20) mg/dl Urine Opiates Screen (Neg) U Codeine Confrm GC/MS Ur Morphine (GC/MS) Ur Hydrocodone (GC/MS) Ur Norhydrocodone Ur Noroxycodone Urine Oxycodone (GC/MS) U Oxymorphone GC/MS Ur Methadone, Qual (Neg) U Methadone Metabolites Ur Methadone Confirm Ur Hydromorphone (GC/MS) Acetaminophen (10-30) ug/ml Urine Barbiturates (Neg) Ur Phencyclidine (PCP) (Neg) U Amphetamines Confirm U Amphetamin/Meth Scrn (Neg) U Methamphetamin Confrm MDMA (Ecstasy) Screen (Neg) U OH-Alprazolam Confrm U Benzodiazepines Scrn (Neg) 7-Amino Clonazepam Ur Nordiazepam Confirm U OH-ethylflurazepam U Lorazepam Cnf GC/MS U Oxazepam Confm GC/MS Ur Temazepam Confirm U OH-Triazolam Confirm U OH-Midazolam Confirm Ur Cocaine Metabolite (Neg) U Marijuana (THC) Screen (Neg) Drug Screen Comment Ethyl Alcohol mg/dL (0-3) mg/dl Coding Level of Care Code Critical Care 1st 30-74 mins Diagnoses Respiratory failure J96.02 Chronicity: acute Respiratory failure complication: hypercapnia Acute encephalopathy G93.40 DVT prophylaxis Z29.9 Drug abuse F19.10 Acute respiratory acidosis E87.2 Drug overdose T50.904A Encounter type: initial encounter Injury intent: undetermined intent Admitted to intensive care unit Z78.9 Substance abuse F19.10 Prolonged Q-T interval on ECG R94.31 Time Spent (min) 40 Comment I have personally spent 40 minutes of critical care time in the direct management of this (1) Respiratory failure Chronicity: acute Respiratory failure complication: hypercapnia Qualified Code(s): J96.02 - Acute respiratory failure with hypercapnia (2) Drug overdose Encounter type: initial encounter Injury intent: undetermined intent Qualified Code(s): T50.904A - Poisoning by unspecified drugs, medicaments and biological substances, undetermined, initial encounter
[2019-10-01 16:20] LABS: Base Excess ABG 1.7 mEq/L (-9-1.8); HCO3 ABG 27 mmol/L (19-24); Oxygen Saturation ABG 98.7 % (90-95); PCO2 ABG 46 mmHg (35-46); PO2 ABG 130 mmHg (80-95); pH ABG 7.39 (7.35-7.45)
--- NOTE | 2019-10-01 16:20 | Electrocardiogram Report ---
Test Reason : Blood Pressure : / mmHG Vent. Rate : 101 BPM Atrial Rate : 101 BPM P-R Int : 156 ms QRS Dur : 088 ms QT Int : 372 ms P-R-T Axes : 067 072 060 degrees QTc Int : 482 ms Sinus tachycardia Otherwise normal ECG When compared with ECG of 08-AUG-2018 14:27, QT has lengthened Confirmed by Konrad Hare ([id number]) on 10/01/2019 4:20:36 PM Referred By: REFERRED SELF Confirmed By:Brendon Hare
[2019-10-01] MEDS ORDERED: D5NSS + 20MEQ KCL 20 MEQ/1,000 ML BAG IV SCH (17:11)
[2019-10-01] MEDS ORDERED: PIPERACILL/TAZOBAC CONSULT ACTIVE PRN (17:11)
[2019-10-01] MEDS ORDERED: PIPERACILLIN/TAZOBACTAM 4.5 GM/120 ML BAG IV ONE (17:11)
[2019-10-01] MEDS ORDERED: ICU PROTOCOL FOR HYPERGLYCEMIA PRN (17:11)
[2019-10-01] MEDS ORDERED: ONDANSETRON INJ 2 MG/ML 2 ML VIAL IV PRN (17:11)
[2019-10-01] MEDS ORDERED: PIPERACILLIN/TAZOBACTAM 4.5 GM in DEXTROSE 5% 100 ML IV ONE (18:00)
[2019-10-01 18:46] LABS: Allen Test Pos (Pos)
[2019-10-01] MEDS ORDERED: HEPARIN SOD 5,000 UNIT/0.5 ML VIAL SQ SCH (22:00)
[2019-10-02] MEDS ORDERED: PIPERACILLIN/TAZOBACTAM 4.5 GM in DEXTROSE 5% 100 ML IV SCH
[2019-10-02] MEDS: propofoL 1,000 MG/100 ML VIAL IV SCH ×2 (00:28→02:52)
[2019-10-02] MEDS ORDERED: LORazepam 1 MG/2 ML VIAL IV STA (04:05)
[2019-10-02] MEDS ORDERED: LORazepam 2 MG/4 ML VIAL ONE (04:08)
--- NOTE | 2019-10-02 04:41 | Communication Note ---
Date of Service: October 02, 2019 Shortly after 1 AM, I was contacted by nursing staff and informed the patient had self extubated. This had occurred despite appropriate nonviolent restraints as well as high doses of propofol. I have reported immediately to bedside. At this point, the patient is maintained his own oxygen saturations. He is able to clear his secretions with active coughing. Sedation was immediately turned off. Suctioning was performed. Patient saturated well on room air and did not require supplemental oxygen. Patient was able to follow complete commands. He was informed of his location, of which he was surprised. He maintained saturations and did well hemodynamically. I did report to assess the patient at bedside again at 4:30 AM as the patient was becoming increasingly agitated as he reports that he has anxiety and wished to go home. He is awake, alert, and oriented. He is aware of location. He provides me details of the events yesterday. He reports that he drove his significant other to a court appearance. He states that he only took methadone. He claims to remember receiving Narcan. He is irritated by this as he takes methadone daily and reports this is all he would have taken yesterday. In conversation, the patient is requesting to leave. I did explain to the patient that it was 4:30 in the morning and it was unlikely that he would get a ride. Apparently, the patient had already reached out to a friend who is willing to pick him up. I explained to the patient that he had recently self extubated, and that he does warrant closer evaluation for at least 6 hours if not longer status post intubation citing vocal cord spasm with airway collapse, possible development of respiratory distress, and things up to and including . Despite all of this, the patient reports that he would rather take the risks and be discharged home. I did convince the patient to allow us to obtain morning labs as well as a chest x-ray to rule out any significant infiltrative changes consistent with an aspiration pneumonia. He is agreeable to this and we agreed that he would be discharged after his labs returned. I personally reviewed the patient's chest x-ray at bedside which does not demonstrate significant infiltrative changes or acute findings otherwise. Laboratory assessment is otherwise unremarkable. I had spoken with attending hospitalist as well as mental health who had seen the patient as part of routine care on overdose patients. In speaking with mental health delegate, she has no concerns of suicidal ideation or homicidal ideation. She agrees that the patient is cleared from a psychological standpoint and is able to make his own decisions. After extensive conversation with the patient and laboratory review, it is apparent that the patient is able to make his own decisions regarding ongoing treatment and care. He is of sound mind despite his decision that may not be standard of care status post intubation. I did explain AMA paperwork and the patient obliged to sign the form. At this point, after extensive conversation with the patient, I do feel that he is able to make his own decisions including the decision to leave the hospital at this time if he so chooses. While I disagree and feel as though he would benefit from a longer stay after several hours of intubation, I feel that the risks of increasing patient agitation outweigh the benefits of allowing him to leave AGAINST MEDICAL ADVICE. Patient is able to leave on his own recognizance. He had a sober driver courier pick him up at the front entrance. Patient was discharged home with counseling to return in the event of any change or worsening symptoms. Coding Level of Care Code None Time Spent (min) 45
[2019-10-02 04:45] LABS: Basophils # (auto) 0.02 K/uL (0-0.2); Basophils % (auto) 0.2 %; Eosinophils # (auto) 0.23 K/uL (0-0.5); Hemoglobin 14.6 g/dL (14.0-18.0); Immature Granulocytes # (auto) 0.03 K/uL (0.00-0.02); Immature Granulocytes % (auto) 0.3 %; Lymphocytes # (auto) 1.89 K/uL (1.2-3.4); Lymphocytes % (auto) 16.5 %; Mean Corpuscular Hemoglobin 31.4 pg (25-34); Mean Corpuscular Hgb Conc 34.8 g/dL (32-36); Mean Corpuscular Volume 90.3 fL (80-100); Mean Platelet Volume 8.7 fL (7.4-10.4); Monocytes # (auto) 0.99 K/uL (0.11-0.59); Monocytes % (auto) 8.7 %; Neutrophils # (auto) 8.28 K/uL (1.4-6.5); Neutrophils % (auto) 72.3 %; Platelet Count 231 K/uL (130-400); RDW Standard Deviation 42.8 fL (36.4-46.3); Red Blood Count 4.65 M/uL (4.7-6.1); White Blood Count 11.44 K/uL (4.8-10.8)
[2019-10-02 05:06] LABS: Albumin Level 3.6 gm/dl (3.4-5.0); BUN Creatinine Ratio 7.6 (10-20); Bilirubin Direct 0.2 mg/dl (0-0.2); Calcium 8.8 mg/dl (8.5-10.1); Est GFR (Non-African American) 118.2; Magnesium 1.9 mg/dl (1.8-2.4); Potassium 4.1 mmol/L (3.5-5.1)
[2019-10-02 05:08] LABS: Bilirubin,Total 0.6 mg/dl (0.2-1); Phosphorus 2.6 mg/dl (2.5-4.9); Total Protein 7.6 gm/dl (6.4-8.2)
--- NOTE | 2019-10-02 08:03 | XRay Report ---
XR chest 1V portable CLINICAL HISTORY: 38 years-old Male presenting with f/u. TECHNIQUE: Portable upright AP view of the chest was obtained. COMPARISON: 10/01/2019. FINDINGS: Interval extubation. Cardiomediastinal silhouette normal. Mild hyperinflation. Essential resolution o f basilar opacities with improved aeration. No new focal opacity. No large effusion or pneumothorax. Osseous structures normal. Upper abdomen normal. IMPRESSION: 1. Interval extubation. No acute cardiopulmonary disease. ACT 112: Negative or not required by law. Electronically signed by: Alexander Renteria M.D. 10/02/2019 8:02 AM
[2019-10-02 12:45] LABS: iSTAT Arterial Blood Gas HCO3 29 meg/L (19-24); iSTAT Arterial Blood Gas pCO2 59 mmHg (35-46); iSTAT Arterial Blood Gas pH 7.29 (7.35-7.45); iSTAT Arterial Blood Gas pO2 125 mmHg (80-95); iSTAT Carbon Dioxide 31 mmol/L (24-31)
[2019-10-03 23:49] LABS: 7-Aminoclonaz, Confirm 436 ng/mL (<25); Amphetamine Urine, Confirm 353 ng/mL (<250); Codeine Urine NEGATIVE ng/mL (<50); Hydro-Alp Ur, GC/MS 477 ng/mL (<25); Hydrocodone Urine NEGATIVE ng/mL (<50); Hydromor Urine NEGATIVE ng/mL (<50); Hydroxyethylflurazepam, Conf NEGATIVE ng/mL (<50); Hydroxymidazolam Ur, GC/MS 991 ng/mL (<50); Hydroxytriazolam NEGATIVE ng/mL (<50); Lorazepam, Ur GC/MS NEGATIVE ng/mL (<50); Methadone, Ur Metabolite >10000 ng/mL (<100); Methamphetamine, Ur Confirm 2860 ng/mL (<250); Morphine Urine 3480 ng/mL (<50); Nordiazepam, Confirm NEGATIVE ng/mL (<50); Norhydrocodone Conf Ur NEGATIVE ng/mL (<50); Noroxycodone Urine NEGATIVE ng/mL (<50); Oxazepam Ur, GC/MS NEGATIVE ng/mL (<50); Oxycodone Urine NEGATIVE ng/mL (<50); Oxymorph Urine NEGATIVE ng/mL (<50); Temazepam, Confirm NEGATIVE ng/mL (<50)
--- NOTE | 2019-10-20 15:57 | Discharge Summary ---
Date of Service October 20, 2019 Admission HPI Per Admitting Provider 38 y/o M who was brought to the ED after being found passed out in his car. Pt is intubated and sedated at this time. Unable to provide any hx. All hx comes from ED physician. Pt was found passed out in his car. EMS was called. They gave pt 4mg Narcan and he appeared to wake up, however was confused and combative. Pt was then given 4mg Versed, but aggressiveness continued. He was then given ketamine. At this point, pt started with n/v and frothing at the mouth. He was brought to the ED and there was concern that he was not protecting his airway. He was intubated in the ED. He has been sedated on propofol since that time. At some point while pt was confused and combative, he did admit to being prescribed methadone. Per ED physician, pt's was on the scene when EMT arrived, however she appeared to be intoxicated as well. Principal Diagnosis Per nursing notes, pt left AMA loader of 10/02/2019. It appears that the ICU PAC did attempt to dissuade him from leaving AMA, however pt was agitated and left. Discharge Exam Not available Discharge Data Allergies Allergy/AdvReac Type Severity Reaction Status Date / Time Unable to Assess Allergy Unverified 10/01/19 13:04 Consultations 10/01/19 15:06 Consult Fringe Maker Stat ED Decision to Admit Stat 10/01/19 17:11 Consult Case Management - Discharge Planning Routine Consult Fringe Maker Routine Ordered Studies 10/01/19 13:11 CT head/brain wo con Stat Hospital Course (1) Drug overdose: Pt found passed out in his car Given several medication by EMS: 4mg narcan, 4mg versed, ketamine Utox noted for opiates, methadone, methamphetamines, benzos Utox neg for acetaminophen and EtOH Pt stated rx use of methadone to EMS at one point CBC, PRP, trop, lactic acid, lipase WNL CT head: neg for acute UA neg Admitted intubated and sedated for failure to protect airway Pt left AMA on 10/01 in early AM (2) Respiratory failure: Presumed related to overdose (3) Acute respiratory acidosis: related to above (4) Abnormal chest x-ray: CXR s/p intubation with possible atelectasis vs aspiration Start on zosyn (5) DVT prophylaxis: Heparin for DVT proph Total Time Total Time Spent Total Time Spent (In Minutes): >30 Total Time Includes: Discharge Planning and Other Discharge Plan Discharge Items Patient Disposition: Against Medical Advice Reason For Visit: ACCIDENTAL OVERDOSE Discharge Diagnosis: Overdose Condition on Discharge: Good Activity: Resume your previous activity Non-emergency contact: Primary Care Provider Call non-emergency contact if: you have any medication questions and your sympt oms worsen Follow-up/Referrals: PCP,NO [Primary Care Provider] - Diet: Regular Addtl Attending Provider Instructions: Follow up with your PCP as needed. Return for any changing or worsening symptoms. Pending Studies at Discharge: No Stand-Alone Forms: e-Tag, Smoking Cessation Skilled Items Patient informed of condition?: Yes DNR: No Discharge Level of Care: Other Medications and DC Order Prescriptions: No Action Unobtainable RF: 0 Admission Data Admit Date/Time: 10/01/19 15:29 Attending Provider: Rosario Armendariz Admit Provider: Rosario Armendariz Primary Care Provider: PCP,NO Other Providers: Paramjit Nolen Other Interventions: Discharge Summary Assessment (RN) Last Done: 10/02/19 05:26 DC Date/Time DO NOT enter until pt leaves facility: 10/02/19 05:15 Coding Level of Care Code D/C Day Management >30 mins Diagnoses Drug overdose T50.904A Encounter type: initial encounter Injury intent: undetermined intent Respiratory failure J96.02 Chronicity: acute Respiratory failure complication: hypercapnia Acute respiratory acidosis E87.2 Abnormal chest x-ray R93.89 DVT prophylaxis Z29.9
== END 2019-10-02 05:15 | disposition left against medical advice (07) | DRG 917 ==
LOC: ED 12:55 → 1E 15:29